=== PATIENT | male | born 1980 | race Caucasian/White ===

== ENCOUNTER → 2018-06-19 09:18 | Outpatient (CLI) | payer OTHER, SELFPAY ==
--- NOTE | 2018-06-19 09:26 | US_ITS ---
US abdomen limited History:Abdominal pain, right lower quadrant and right flank pain, abnormal CT of the abdomen Ordering Physician:Una Alfaro Patient Age: 37 years Comparison:06/18/2018 Findings: Pancreas:Unremarkable. No obvious mass or abnormal fluid collection. No ductal dilatation Liver:No focal liver lesions demonstrated. Homogeneous echogenicity. No intrahepatic biliary ductal dilatation evident Right Kidney:Unremarkable. Normal size and echogenicity. No hydronephrosis Gallbladder:No gallstones, gallbladder wall thickening, pericholecystic fluid, or biliary dilatation. Impression:Negative gallbladder/right upper quadrant ultrasound
== END ==
PROVIDERS: PCP Physician Assistant; Visit Provider Physician Assistant
DX: R93.5 Abnormal findings on diagnostic imaging of other abdominal regions, including retroperitoneum (principal)
CPT/HCPCS: 76705

== ENCOUNTER → 2018-06-20 15:35 | Outpatient (CLI) | payer OTHER, SELFPAY ==
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
== END ==
PROVIDERS: PCP Family Medicine; Visit Provider Family Medicine
DX: R93.5 Abnormal findings on diagnostic imaging of other abdominal regions, including retroperitoneum (principal)

== ENCOUNTER → 2018-06-28 09:57 | Outpatient (CLI) | payer OTHER, SELFPAY ==
--- NOTE | 2018-06-28 10:00 | NM_ITS ---
NM hepatobiliary wo pharm HEPATOBILIARY SCAN UTILIZING FATTY MEAL HISTORY: Right upper quadrant pain nausea vomiting ITS.REASON: RUQ PAIN,N/V,DIARRHEA,NEG US, PT UNABLE TO EAT ORDERING PHYSICIAN: Una Alfaro PATIENT AGE: 37 years COMPARISON: None DOSE: 8.35 mCi Tc Choletec FINDINGS: Homogeneous activity is present within the hepatic parenchyma. Anatomy matches the CT scan from 06/18/2018. There is lack of activity seen within the small bowel during the first 60 minutes suggestive of dysfunction/spasm Sphincter of Oddi.. Thin patient received pain medications prior to this study that may induce such?- No history of such was given to technologist.... With this feature would also note slight generous activity within the common duct & central biliary radicals which may reflect slight delay stasis secondary to the secondary apparent Sphincter of Oddi dysfunction/ spasm. Recent CT and ultrasound show no definite intrahepatic biliary ductal dilatation Normal filling of the gallbladder is seen by 30 minutes However we again we do not see activity within the small bowel 15 minutes. The gallbladder ejection fraction is calculated to be 65%.] 52 minutes following the start of the study and fatty meal. 1 standard serving ensure used for fatty meal This gallbladder ejection fraction is Greater than 50% reflecting normal mary & functioning gallbladder following fatty meal The patient did not report pain or other symptoms during the fatty meal. IMPRESSION: 1.Normal Gallbladder Ejection Fraction. 65% within 1 hour 1 hour following fatty meal/ Ensure utilized 2. However Findings are suggestive of Sphincter Of Oddi Spasm or Dysfunction. . Lack of Small Bowel Activity at 1 Hour.....With suggestion perhaps subtle biliary stasis suggested at common duct & central biliary radicles associated .
== END ==
PROVIDERS: PCP Family Medicine; Visit Provider Physician Assistant
DX: R10.11 Right upper quadrant pain (principal); R11.2 Nausea with vomiting, unspecified; R19.7 Diarrhea, unspecified
CPT/HCPCS: 78226; A9537

== ENCOUNTER → 2018-07-02 11:41 | Outpatient (CLI) | payer OTHER, SELFPAY ==
[2018-07-02 13:44] LABS: Basophils % 0.2 % (0.1-2.0); Eosinophils # 0.3 K/mm3 (0.0-0.4); Hematocrit 46.9 % (42.0-52.0); Hemoglobin 15.5 g/dL (14.1-18.0); Lymphocytes % 22.3 K/mm3 (10-50); Mean Corpuscular Hemoglobin 29.4 pg (27.0-31.2); Mean Corpuscular Volume 89.1 fl (80-94); Mean Platelet Volume 7.7 fl (7.4-10.4); Monocytes # 0.5 K/mm3 (0.1-1.0); Monocytes % 5.4 % (1.7-9.3); Neutrophils # 6.2 K/mm3 (1.8-7.8); Neutrophils % 69.1 % (37.0-80.0); Platelet Count 260 K/mm3 (142-424); Red Blood Count 5.27 M/mm3 (4.60-6.20); White Blood Count 8.9 K/mm3 (4.8-10.8)
[2018-07-02 14:43] LABS: Alanine Aminotransferase 18 U/L (12-78); Albumin/Globulin Ratio 1.4 (1.1-1.8); Alkaline Phosphatase 77 U/L (46-116); Amylase 55 U/L (25-125); Anion Gap 13.4 mEq/L (5-15); Aspartate Amino Transferase 7 U/L (15-37); Bilirubin,Total 0.8 mg/dL (0.2-1.0); Blood Urea Nitrogen 12 mg/dL (7-18); Calcium 9.1 mg/dL (8.5-10.1); Carbon Dioxide 26 mmol/L (21.0-32.0); Chloride 106 mmol/L (98-107); Chol/HDL Ratio 5.1 (1-3.5); Cholesterol 192 mg/dL (140-200); Creatinine,Serum 0.72 mg/dL (0.70-1.30); Estimated Glomerular Filt Rate 124 ml/min (>60); GFR (African American) 150 ML/MIN (>60); Globulin 2.8 gm/dl (1.3-3.2); Glucose 93 mg/dL (74-106); HDL Cholesterol 38 mg/dL (27-67); LDL Cholesterol 116 mg/dL (0-130); Lipase 108 u/L (73-393); Potassium 4.4 mmoL/L (3.5-5.1); Sodium 141 mmol/L (136-145); Total Protein,Serum 6.8 gm/dL (6.4-8.2); Triglycerides 190 mg/dL (30-200); VLDL Cholesterol 38 mg/dL (0-40)
[2018-07-03 14:20] LABS: Hep A Ab, IgM Negative (Negative); Hepatitis B Core Antibody IgM Negative (Negative); Hepatitis B Surface Antigen Negative (Negative)
[2018-07-03 16:54] LABS: Hepatitis C Antibody <0.1 s/co ratio (0.0-0.9)
== END ==
PROVIDERS: PCP Nurse Practitioner Family; Visit Provider Nurse Practitioner Family
DX: R10.9 Unspecified abdominal pain (principal); R63.4 Abnormal weight loss; R11.0 Nausea
CPT/HCPCS: 36415; 80053; 80061; 80074; 82150; 83690; 84443; 85025; 86677

== ENCOUNTER 2024-03-05 15:43 | Outpatient (CLI) | payer MEDICAID, SELFPAY ==
[2024-03-05 16:34] LABS: Basophils # 0.1 K/mm3 (0-0.2); Basophils % 0.8 % (0.1-2.0); Eosinophils # 0.2 K/mm3 (0.0-0.4); Eosinophils % 2.1 % (0.1-12.0); Hemoglobin 15.7 g/dL (14.1-18.0); Lymphocytes # 2.3 K/mm3 (0.7-4.5); Lymphocytes % 23.8 % (10-50); Mean Corpuscular HGB Conc 32.1 g/dL (31.8-35.4); Mean Corpuscular Hemoglobin 30.4 pg (27.0-31.2); Mean Corpuscular Volume 94.8 fl (80-94); Mean Platelet Volume 8.5 fl (7.4-10.4); Monocytes # 0.6 K/mm3 (0.1-1.0); Monocytes % 6.2 % (1.7-9.3); Neutrophils # 6.4 K/mm3 (1.8-7.8); Platelet Count 197 K/mm3 (142-424); Red Blood Count 5.17 M/mm3 (4.60-6.20); Red Cell Distribution Width 14.2 % (11.5-17.5); White Blood Count 9.6 K/mm3 (4.8-10.8)
[2024-03-05 16:54] LABS: Alanine Aminotransferase 26 U/L (12-78); Albumin Level 4.5 g/dl (3.5-5.0); Alkaline Phosphatase 68 U/L (38-126); Anion Gap 12.4 mEq/L (5-15); Aspartate Amino Transferase 31 U/L (17-59); Bilirubin,Direct 0.1 mg/dl (0.0-0.4); Bilirubin,Indirect 1.1 mg/dL (0.0-0.9); Bilirubin,Total 1.2 mg/dl (0.2-1.3); Blood Urea Nitrogen 12 mg/dl (9-20); Calcium 9.4 mg/dl (8.4-10.2); Carbon Dioxide 31 mmol/L (22.0-30.0); Chloride 103 mmol/L (98-107); Chol/HDL Ratio 5.2 (1-3.5); Cholesterol 191 mg/dl (140-200); Estimated Glomerular Filt Rate 93 ml/min (>60); GFR (African American) 113 ML/MIN (>60); Glucose 103 mg/dl (74-100); HDL Cholesterol 37 mg/dl (40-60); Potassium 4.4 mmoL/L (3.5-5.1); Sodium 142 mmol/L (136-145); Total Protein,Serum 7.1 g/dl (6.3-8.2); Triglycerides 353 mg/dl (30-150); VLDL Cholesterol 71 mg/dL (0-40)
[2024-03-05 17:04] LABS: Direct LDL Cholesterol 108.09 mg/dL (100-129)
[2024-03-05 17:08] LABS: Free T4 (Free Thyroxine) 0.92 ng/dl (0.78-2.19)
== END 2024-03-05 23:59 | disposition home or self-care (01) ==
LOC: LAB 15:44
PROVIDERS: PCP Nurse Practitioner Family; Visit Provider Nurse Practitioner
DX: I10 Essential (primary) hypertension (principal); R07.9 Chest pain, unspecified; R06.00 Dyspnea, unspecified; Z82.49 Family history of ischemic heart disease and other diseases of the circulatory system; F17.210 Nicotine dependence, cigarettes, uncomplicated
CPT/HCPCS: 36415; 80048; 80061; 80076; 83735; 84439; 84443; 85025

== ENCOUNTER 2024-03-17 16:15 | Emergency (ER) | payer MEDICAID, SELFPAY ==
[2024-03-17 16:18] VITALS: BP 126/85; PULSE 57; RESP 18; TEMP 36.6; O2SAT 99; BMI 24.3
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
[2024-03-17] MEDS: MORPHINE 4MG/ML SYRINGE 4 MG IV (16:40)
--- NOTE | 2024-03-17 16:41 | PC.NURSE ---
PT gone to RAD for trauma scans
[2024-03-17] MEDS: SODIUM CHLORIDE 0.9% 10ML SYR (RAD ONLY) 10 ML IV (16:46)
[2024-03-17] MEDS: 0.9 % SODIUM CHLORIDE 50 ML VIAL IV (16:46)
[2024-03-17] MEDS: IOPAMIDOL-370 (76%);100ML BOTTLE 180 ML IV (16:46)
[2024-03-17 16:55] LABS: Basophils # 0.1 K/mm3 (0-0.2); Basophils % 0.5 % (0.1-2.0); Eosinophils # 0.1 K/mm3 (0.0-0.4); Hematocrit 46.3 % (42.0-52.0); Hemoglobin 15.3 g/dL (14.1-18.0); Lymphocytes # 2.1 K/mm3 (0.7-4.5); Lymphocytes % 17.7 % (10-50); Mean Corpuscular Hemoglobin 30.5 pg (27.0-31.2); Mean Corpuscular Volume 92.4 fl (80-94); Mean Platelet Volume 8.4 fl (7.4-10.4); Monocytes # 0.7 K/mm3 (0.1-1.0); Neutrophils % 74.7 % (37.0-80.0); Platelet Count 206 K/mm3 (142-424); Red Blood Count 5.01 M/mm3 (4.60-6.20); Red Cell Distribution Width 14.1 % (11.5-17.5)
[2024-03-17 16:56] LABS: Chloride 107 mmol/L (98-107); Sodium 140 mmol/L (136-145)
[2024-03-17 16:59] LABS: Alanine Aminotransferase 22 U/L (12-78); Albumin Level 4.4 g/dl (3.5-5.0); Albumin/Globulin Ratio 1.5 (1.1-1.8); Alkaline Phosphatase 71 U/L (38-126); Aspartate Amino Transferase 32 U/L (17-59); Bilirubin,Total 0.7 mg/dl (0.2-1.3); Blood Urea Nitrogen 11 mg/dl (9-20); Calcium 9.4 mg/dl (8.4-10.2); Carbon Dioxide 27 mmol/L (22.0-30.0); Creatinine Clearance Estimated 119 mL/min (50-200); Estimated Glomerular Filt Rate 82 ml/min (>60); GFR (African American) 100 ML/MIN (>60); Globulin 2.9 g/dL (1.3-3.2); Glucose 103 mg/dl (74-100); Total Protein,Serum 7.3 g/dl (6.3-8.2)
[2024-03-17] MEDS: TET/DIPHTH/PERT-ADULT 0.5ML SYRINGE 0.5 ML IM (18:00)
--- NOTE | 2024-03-17 18:15 | PC.NURSE ---
DR ABREU AT BEDSIDE
[2024-03-17 18:26] VITALS: BP 132/80; PULSE 62; RESP 18; TEMP 36.7; O2SAT 99
== END 2024-03-17 18:29 | disposition home or self-care (01) ==
PROVIDERS: Emergency Provider Emergency Medicine; PCP Nurse Practitioner Family
DX: I72.0 Aneurysm of carotid artery (principal); S00.03XA Contusion of scalp, initial encounter; M25.511 Pain in right shoulder; M79.642 Pain in left hand; F17.210 Nicotine dependence, cigarettes, uncomplicated; I10 Essential (primary) hypertension; Z23 Encounter for immunization; V86.59XA Driver of other special all-terrain or other off-road motor vehicle injured in nontraffic accident, initial encounter
CPT/HCPCS: 70450; 70496; 70498; 71275; 72125; 72128; 72131; 73030; 73110; 73130; 74174; 80053; 85025; 90471; 90715; 96374; 99285; J2270; Q9967

== ENCOUNTER 2024-03-21 10:47 | Outpatient (CLI) | payer MEDICAID, SELFPAY ==
--- NOTE | 2024-03-21 | CA_ITS ---
APPROVED REPORT Exam: Exercise Treadmill Technologist: Maryse Manning, Ht: 6 ft 2 in Wt: 186 lbs BSA: 2.11 m2 HR: 54 bpm BP: 120/90 mmHg Rhythm: Sinus bradycardia Medical History Medications: Aspirin,,,,, Cardiac Risk Factors: HTN, FHX of CAD, Smoking Stress Test Details Test: Sundar HR Resting HR: 58 bpm Max Heart Rate (APMHR): 179 bpm Max HR Achieved: 154 bpm Target HR (85% APMHR): 152 bpm % of APMHR: 86 Recovery HR: 92 bpm HR response to stress: Normal HR response to stress BP Resting BP: 116.0/89 mmHg Max BP: 188/68 mmHg Recovery BP: 172.0/72.0 mmHg BP response to stress: Normal blood pressure response to stress. ECG Resting ECG: Sinus bradycardia Stress ECG: < 0.[address] depression Clinical Exercise duration: 12:00 min Highest Stage Achieved: Exercise capacity: 12.8 METs Overall Exercise Capacity for Age: Average Stress ECG Conclusion Pt exercised total of 12 minutes on sundar protocol, stopped due to SOA and fatique. Mild chest tightness noted. The patient achieved a total of 12.8 METS. He has average exercise capacity compared to age and sex matched peers. He has normal HR and BP response to exercise. No arrhythmias noted. ST changes: < 0.[address] depression Conclusion: Average exercise capacity No evidence of ischemia at peak stress. Myoview images reported separately. Test Summary REST . . . . . . . Sitting REST . . . . . . . Standing REST 24:05 0.0 0.0 58 . 116/ 89 . . Stage 1 01:00 10.0 1.7 88 . . . . Stage 1 02:00 10.0 1.7 87 . . . . Stage 1 03:00 10.0 1.7 88 . 146/ 70 . . Stage 2 01:00 12.0 2.5 96 . . . . Stage 2 02:00 12.0 2.5 . . . . . Stage 2 03:00 12.0 2.5 109 . 174/ 66 . . Stage 3 01:00 14.0 3.4 126 . . . . Stage 3 02:00 14.0 3.4 126 . . . . Stage 3 03:00 14.0 3.4 128 . 188/ 68 . . Stage 4 01:00 16.0 4.2 143 . . . . Stage 4 02:00 16.0 4.2 138 . . . . Stage 4 03:00 16.0 4.2 140 . . . Stop exercise at 12:00 RECOVERY 01:00 0.0 0.0 104 . . . . RECOVERY 02:00 0.0 0.0 90 . 172/ 72 . . RECOVERY 03:00 0.0 0.0 84 . 172/ 72 . . RECOVERY 04:00 0.0 0.0 77 . 149/ 80 . . RECOVERY 05:00 0.0 0.0 74 . 137/ 77 . . RECOVERY 05:21 0.0 0.0 82 . 137/ 77 . . Electronically signed by : Britt Jc MD 03/24/2024 12:06:15
--- NOTE | 2024-03-21 10:48 | CA_ITS ---
APPROVED REPORT EXAM: Comprehensive 2D, Doppler, and color-flow Echocardiogram Legal Document Assistant: Galina Alicea RVT Ht: 6 ft 2 in Wt: 186lbs BSA: 2.11 BP: 127/79 mmHg Indications: CP,HTN,SMOKER,FATIGUE,SOA 2D Dimensions LA Volume 27.60 mL LA Volume Index 13.08 mL/m2 (M/F) 16-34 M-Mode Dimensions RVDd 3.03 cm (0.9-2.6) LA Diam 3.25 cm (1.9-4.0) LVDd 5.59 cm (3.5-5.7) LVDs 3.92 cm (3.5-5.7) IVSd 0.61 cm (0.6-1.1) PWd 0.43 cm (0.6-1.1) EF (Teich) 56.40% FS 29.90% EDV (Teich) 153.00 mL TAPSE 2.14 (<1.7) ESV (Teich) 66.70 mL LV Diastology E Decel Time 243 (160-240 msec) E/A Ratio 1.3 Aortic Valve FRANCES Index 1.28 cm2/m2 AoV Peak Freeman. 144.0 (50-130 cm/s) AO Peak GR. 8.30 mmHg AO Mean GR. 4.20 (<5 mmHg) AO VTI 29.8 (18-25 cm) FRANCES (VTI) 2.77 (2.5-4.5 cm2) Mitral Valve MV E Max Freeman. 91.0 (40-130 cm/s) MV A Velocity 69.0 (40-130 cm/s) E/A Ratio 1.30 MV PHT 71.0 ms Pulmonary Valve PV Peak Velocity 80.0 (50-150 cm/s) Tricuspid Valve TR P. Velocity 216.00 cm/s RAP Estimate 10.00 mmHg RVSP 28.60 mmHg Left Ventricle The left ventricle is normal size. The left ventricular systolic function is normal. The left ventricular ejection fraction is within the normal range. There is normal left ventricular wall thickness. There is normal LV segmental wall motion. The left ventricular diastolic function is normal. LVEF is 55%. Right Ventricle The right ventricle is normal size. The right ventricular systolic function is normal. Atria The left atrium size is normal. The right atrium size is normal. There is no Doppler evidence of interatrial shunt. Aortic Valve The aortic valve opens well. The aortic valve is trileaflet. There is no aortic valvular stenosis. Trace aortic regurgitation. Mitral Valve The mitral valve is normal in structure. No evidence of mitral valve stenosis. Trace mitral valve regurgitation noted. Tricuspid Valve The tricuspid valve leaflets are thin and pliable. Mild tricuspid regurgitation. RVSP is 25-30 mmHg. Pulmonic Valve The pulmonary valve is normal in structure. Mild pulmonic regurgitation. Great Vessels The aortic root is normal in size. The ascending aorta is normal in size. IVC is normal in size and collapses >50% with inspiration. Pericardium There is no pericardial effusion. Other Information Study Quality: Fair Conclusion Normal biventricular systolic function. Mild TR, mild PI. Electronically signed by : Britt Jc MD 03/25/2024 11:39:59
--- NOTE | 2024-03-21 11:16 | NM_ITS ---
APPROVED REPORT Exam: Nuclear Stress Test Indication: TOB USE, FM HX, C.P., SOB Patient Location: Outpatient Stress Tech: Maryse SCHUSTER Tech:MINE Hardwick RT(R)(N) Ht: 6 ft 2 in Wt: 185 lbs HR: 58 bpm BP: 116/89 mmHg BSA: 2.10 m2 TID: 1.09 BMI: 23.7 History: TOB USE, FM HX, C.P., SOB PATIENT'S PRONE IMAGES HAD TO MUCH MOTION TO CORRECT Procedure: Patient exercised on Magdy protocol 12:00 minutes and sec, resting heart rate 58 bpm, resting blood pressure 116/89 mmHg, with exercise maximum heart rate achived was 154 bpm which is 86 % of the maximum predicted heart rate and blood pressure was 188/68 mmHg. Test was stopped due to FATIGUE. Patient denied any complaint of chest pain. Patient has Average exercise capacity, achieved 12.8 METs of workload on treadmill, the blood pressure response to exercise was Normal. Cardiac Stress and Resting SPECT Images: Cardiac Stress and Resting SPECT images were obtained using technetium 99m Myoview 31.0 mCi stress and 10.78 mCi at rest. Technically difficult study due to significant soft tissue overlap with the cardiac borders. The patient was also unable to lie still on his abdomen, resulting in significant motion. Therefore, prone stress imaging could not be performed. This may affect the diagnostic interpretation of the study findings. Resting and stress imaging in supine positions demonstrate a large sized, moderate, fixed perfusion defect in the basal to mid inferior LV wall. Gated imaging demonstrates mild reduction in global LV systolic function. LVEF is calculated at 48%. Conclusion: Technically difficult study. Large sized, moderate, fixed perfusion defect in the basal to mid inferior LV wall. Gated imaging demonstrates mild reduction in global LV systolic function. LVEF is calculated at 48%. In the setting of technically difficult study and discrepancy between LVEF on TTE versus nuclear stress test and suspected artifact nuclear stress imaging, further evaluation with noninvasive testing (i.e. CCTA) is suggested prior to proceeding with invasive coronary angiography. Electronically signed by : Britt Jc MD 03/24/2024 12:10:29
[2024-03-21] MEDS: SODIUM CHLORIDE 0.9% 10ML SYR (RAD ONLY) 10 ML IV ×2 (11:30→13:07)
[2024-03-21] MEDS: ISOTOPE MYOVIEW (PER STUDY) 1 DOSE IV (14:05)
== END 2024-03-21 23:59 | disposition home or self-care (01) ==
LOC: RT 10:48
PROVIDERS: PCP Nurse Practitioner Family; Visit Provider Nurse Practitioner
DX: R07.9 Chest pain, unspecified (principal); R06.00 Dyspnea, unspecified; I10 Essential (primary) hypertension; Z82.49 Family history of ischemic heart disease and other diseases of the circulatory system; F17.210 Nicotine dependence, cigarettes, uncomplicated
CPT/HCPCS: 78452; 93017; 93018; 93306; A9502